=== PATIENT | female | born 1990 | race Caucasian/White ===

== ENCOUNTER 2016-07-11 22:58 | Emergency (ER) | payer OTHER, BC ==
[~2016-07-11] VITALS: Ht 167.6 cm; Wt 75.0 kg
[2016-07-11] MEDS ORDERED: NAPROSYN500 MG PO (23:41)
[2016-07-11] MEDS ORDERED: FLEXERIL10 MG PO (23:41)
[2016-07-12 00:07] VITALS: BP 122/86
== END 2016-07-12 00:08 | disposition home or self-care (01) ==
LOC: EME 22:58
DX: S43.402A Unspecified sprain of left shoulder joint, initial encounter (principal); M62.838 Other muscle spasm; W51.XXXA Accidental striking against or bumped into by another person, initial encounter; Y92.219 Unspecified school as the place of occurrence of the external cause; Y99.0 Civilian activity done for income or pay
CPT/HCPCS: 73030; 99281; 99283